=== PATIENT | female | born 1975 | race Caucasian/White ===

== ENCOUNTER 2022-04-07 17:05 | Emergency (ER) | payer OTHER, SELFPAY ==
--- NOTE | ~2022-04-07 | XR_ITS ---
EXAMINATION: XR chest 2V Exam Date/Time: 04/07/2022 17:20 CDT HISTORY: fatigue, fever, pt vapes Comparison: None available. RESULT: Lines, tubes, and devices: None. Lungs and pleura: Clear. Cardiomediastinal silhouette: Normal. Other: No acute osseous or upper abdominal finding. IMPRESSION: No acute cardiopulmonary process. Reviewed, dictated and finalized at location K.
[2022-04-07 17:13] VITALS: BP 139/87; PULSE 78; RESP 20; TEMP 37.3; O2SAT 100
--- NOTE | 2022-04-07 17:15 | ED.URI ---
HPI - URI/Sore Throat General Chief Complaint: Upper Respiratory Infection Stated Complaint: TIRED/FEVER/COUGH/CONGESTION/SORE THROAT Source: patient and RN notes reviewed Mode of arrival: ambulatory Limitations: no limitations History of Present Illness HPI Narrative: 46-year-old female presented for complaint of cough for 1 week, endorses sinus congestion, hoarse voice and fatigue. She states the cough becomes so severe she gags and vomits, worse at night and after talking. She has taken 3 negative COVID test since onset of symptoms. Her PCP prescribed Z-Severino which she completed 2 days ago. She denies sob, cp, wheezing, vomiting, diarrhea, fevers or chills. Denies sick contacts. She smokes half pack per day. MD elicited complaint: cough Related Data Home Medications Medication Instructions Recorded Confirmed bupropion HCl 300 mg 24 hr tablet, 300 mg PO QAM 03/04/22 03/31/22 extended release duloxetine 30 mg capsule,delayed 30 mg PO DAILY 03/04/22 03/31/22 release Allergies Allergy/AdvReac Type Severity Reaction Status Date / Time No Known Allergies Allergy Unknown Verified 03/04/22 11:16 Review of Systems Review of Systems: CONSTITUTIONAL: Endorses malaise, denies chills, sweats, fever EYES: Denies visual changes, redness, or discharge ENT: Reports rhinorrhea, congestion, denies sinus pain, otalgia, sore throat CARDIOVASCULAR: Denies chest pain, palpitations, edema RESPIRATORY: Reports cough, post nasal drainage. Denies dyspnea GASTROINTESTINAL: Denies abdominal pain, nausea, vomiting, diarrhea SKIN: Denies rash or itching MUSCULOSKELETAL: denies myalgia NEUROLOGIC: Denies headache [facility] Past Medical History Medical History Acute non-recurrent maxillary sinusitis BMI 28.0-28.9,adult Depression, reactive, psychotic Herpes labialis without complication Hypertension Major depression Screening for diabetes mellitus Family History Family History Mother , when patient was 5 yrs old Depression Grandparent Diabetes mellitus Hypertension Social History Social History Smoking status: Never smoker Tobacco type: e-cigarettes/vaping Second hand tobacco smoke exposure: No Alcohol intake: never Substance use: never Exam Narrative: GENERAL: Ill-appearing, nontoxic EYES: conjunctivae clear ENT: Mucous membranes moist. TM pearly schneider with dull light reflex bilaterally; no tragal tenderness. Oropharynx erythematous without lesions or exudate, no drooling, no trismus, uvula midline. CHEST: Clear to auscultation, breath sounds equal. No wheezing, rhonchi, rales, or stridor. No respiratory distress, speaks in full sentences. HEART: Regular rate and rhythm. No murmur heard. SKIN: Warm, dry, no rash. NEURO: Alert and oriented x3. PSYCH: tearful Course Course Emergency Course: Patient is aware of diagnosis, understands and agrees to treatment plan. Anticipatory guidance given. Patient agrees to follow-up as directed and is aware of reasons to seek care at the emergency department. Portions of this record may have been created with voice recognition software Level of Care: Express Care Visit Vital Signs Vital signs: Vital Signs Temperature 99.1 F 04/07/22 17:13 Pulse Rate 78 04/07/22 17:13 Respiratory Rate 20 04/07/22 17:13 Blood Pressure 139/87 04/07/22 17:13 Pulse Oximetry 100 04/07/22 17:13 Oxygen Delivery Room Air 04/07/22 17:13 Temperature 99.1 F 04/07/22 17:13 Pulse Rate 78 04/07/22 17:13 Respiratory Rate 20 04/07/22 17:13 Blood Pressure 139/87 04/07/22 17:13 Pulse Oximetry 100 04/07/22 17:13 Oxygen Delivery Room Air 04/07/22 17:13 reviewed MDM - URI/Sore Throat MDM Narrative Medical decision making narrative: CXR reviewed with pt. advised supp
== END 2022-04-07 17:46 | disposition home or self-care (01) ==
PROVIDERS: Emergency Provider Nurse Practitioner Family; PCP Nurse Practitioner Family
DX: J06.9 Acute upper respiratory infection, unspecified (principal); F17.290 Nicotine dependence, other tobacco product, uncomplicated; I10 Essential (primary) hypertension; F32.9 Major depressive disorder, single episode, unspecified
CPT/HCPCS: 71046; 99213; G0463

== ENCOUNTER → 2025-05-10 09:26 | Outpatient (CLI) | payer OTHER, SELFPAY ==
--- NOTE | ~2025-05-10 | XR_ITS ---
EXAMINATION: XR elbow RT 2V DATE: 05/10/2025 09:42 INDICATION: Pain in elbow TECHNIQUE: 1. Anteroposterior, two oblique and lateral views of the affected elbow were obtained. 2. Anteroposterior and lateral views of the affected forearm were obtained. COMPARISON: None. FINDINGS: Alignment is normal at the wrist and elbow. No fracture or elbow joint effusion. Joint spaces are normal. Soft tissues are unremarkable. Soft tissue swelling about the right elbow. IMPRESSION: 1. No fracture. No dislocation. If symptoms persist or worsen, consider a short-term follow-up study or additional imaging for further assessment. Reviewed, dictated and finalized at location Q. IMPRESSION: 1. No fracture. No dislocation. If symptoms persist or worsen, consider a short-term follow-up study or additio nal imaging for further assessment.
--- OUTSIDE RECORDS SUMMARY | 2025-05-10 09:30 | XMS_ITS | Clinical Summary ---
Author Organization [facility] Address [address] [place] [address] Care Team Providers Care Farm Machinery Set Up Mechanic Name Role Phone Telly Madsen MD Primary Care Provider [phone] Source Comments [facility],non-owned Affiliates and Associated Physician Practices is amultiple site organization consisting of ambulatory clinics and hospital sitesin [place], [place], [place] and [place]. This disclosure is being madepursuant to the Care Everywhere program and may not contain all information available regarding this patient. Last updated 18.[employer] [facility] Allergies No known active allergies Medications * Be aware that medications may not be up to date on this document. Alwaysverify current medications with the patient. buPROPion XL 24hr (WELLBUTRIN-XL) 150 MG tablet Take 300 mg by mouth once daily 10/30/2020 Active BLISOVI 24 FE 1-20 MG-MCG(24) tablet Take 1 tablet by mouth once daily 12/10/2020 Active QUEtiapine (SEROQUEL) 25 MG tablet Take 0.5 tablets by mouth once daily 11/28/2020 Active valACYclovir (VALTREX) 1 GM tablet Take 1 g by mouth every 12 hours as needed for Other 01/10/2020 Active Active Problems No known active problems Family History Medical History Relation Name Comments Cancer - Skin, Melanoma Neg Hx Cancer - Skin, Non Melanoma Neg Hx Social History Tobacco Use Types Packs/Day Years Used Date Smoking Tobacco: Former Cigarettes 0.3 2 1 994 - 1995 Smokeless Tobacco: Never Alcohol Use Standard Drinks/Week Comments Never 0 (1 standard drink = 0.6 oz pur e alcohol) Comments Unknown Sex and Gender Information Value Date Recorded Sex Assigned at Not on file Legal Sex Female 8:47 AM SCRAP SEPARATOR Gender Identity Not on file Sexual Orientation Not on file Plan of Treatment Health Maintenance Due Date Last Done Comments COLOGUARD (AGES 45-75) - COL ON CA SCREENING 1974 COLON MONITORING 1974 COLONOSCOPY - COLON CA SCREENING 1974 CT COLONOGRAPHY - COLON CA SCREENING 1974 Colorectal Cancer Screening 1974 FIT - COLON CA SCREENING 1974 FLEX SIG - COLON CA SCREENING 1974 LIPID TESTING 1974 HIV SCREENING 1989 HEPATITIS C SCREENING 04/05/1992 DTAP/TDAP/TD VACCINES (1 - Tdap) 1993 HEPATITIS B VACCINE (1 of 3 - 19+ 3-dose series) 1993 MAMMOGRAM 10/23/2022 10/23/2020 PNEUMOCOCCAL VACCINE 50+ (1 of 1 - PCV) 2024 ZOSTER VACCINE (1 of 2) 2024 COVID-19 VACCINE (1 - 2023-2 5 season) 2024 DEPRESSION SCREENING 09/12/2024 INFLUENZA VACCINE (#1) 2025 HIB VACCINE Aged Out No longer eligi ble based on patient's age to complete this topic HPV VACCINE Aged Out No longer eligi ble based on patient's age to complete this topic MENINGOCOCCAL (Group B) VACC INE SHARED DECISION-MAKING Aged Out No longer eligibl e based on patient's age to complete this topic MENINGOCOCCAL GROUPS A/C/Y/W VACCINE Aged Out No longer eligible b ased on patient's age to complete this topic Care Teams Farm Machinery Set Up Mechanic Relationship Specialty Start Date End Date Telly Madsen MD [address] [address] PCP - General 11/14/20
--- OUTSIDE RECORDS SUMMARY | 2025-05-10 09:30 | XMS_ITS | Clinical Summary ---
Author Organization [facility] Address [address] [place] [address] Care Team Providers Care Utility Aircrewman Name Role Phone DougAllie MARCO Primary Care Provider [phone] Angeline Etienne MD Unavailable [phone] Allergies No known active allergies Surgical History Surgery Date Site/Laterality Comments AUGMENTATION MAMMAPLASTY 09/12/2009 - 09/11/2010 Bilater al Social History Tobacco Use Types Packs/Day Years Used Date Smoking Tobacco: Never Assessed Comments No Sex and Gender Information Value Date Recorded Sex Assigned at Not on file Legal Sex Female 2:40 PM SUSTAINABILITY OFFICER Gender Identity Female 08/16/2023 8:56 PM SUSTAINABILITY OFFICER Sexual Orientation Straight 08/16/2023 8: 56 PM SUSTAINABILITY OFFICER Obstetrics History Para Term AB IAB SAB Ectopic Multiple Livin g Live Births 2 2 2 Date Outcome GA Total Labor Labor/2nd/3rd Weight Sex Type Anes PTL Radha A1 A5 Name Clin Term Term Last Filed Vital Signs Vital Sign Reading Time Taken Comments Blood Pressure - - Pulse - - Temperature - - Respiratory Rate - - Oxygen Saturation - - Inhaled Oxygen Concentration - - Weight 71.2 kg (157 lb) 12/05/2020 8:29 AM CDT Height 167.6 cm (5' 6) 12/05/2020 8:29 AM CDT Body Mass Index 25.34 12/05/2020 8:29 AM CDT Plan of Treatment Health Maintenance Due Date Last Done Comments Cervical Cancer Screening 1974 Colon Cancer Screening-Colonoscopy 1974 Depression Screening 1974 Hepatitis C Screening 1974 DTaP/Tdap/Td Vaccine (1 - Tdap) 1985 Hepatitis B Screening 1992 Regular Well Visit/Exam 18-64 1992 Zoster Vaccine (1 of 2) 2024 Covid-19 Vaccine (4 - season) 2024 09/18/2021, 10/28/2020, 09/30/2020 Influenza Vaccine (#1) 2025 06/19/2024, 2022 Breast Cancer Screening-Mammogram 09/15/2025 09/15/2024, 08/03/2023, 08/03/2022, Additional history exists Pneumococcal vaccine <65 Aged Out No longer eligible based on patient's age to complete this topic Procedures Procedure Name Priority Date/Time Associated Diagnosis Comments SCREENING MAMMOGRAM BILATERAL W HARLAN W IMPLANTS Schedule Routine, Read Routine (OP Routine) 09/15/2024 7:46 AM SUSTAINABILITY OFFICER Encounter for other screening for malignant neoplasm of breast from Last 3 Months or Most Recently Relevant to Health Maintenance Results * Screening Mammogram Bilateral W Harlan W Implants (09/15/2024 7:46 AM SUSTAINABILITY OFFICER) Anatomical Region Laterality Modality Breast Bilateral Mammography 09/16/2024 9:17 PM SUSTAINABILITY OFFICER Impressions 09/16/2024 9:17 PM SUSTAINABILITY OFFICER No evidence of malignancy in either breast. FINAL ASSESSMENT: BI-RADS Category 2: Benign. RECOMMENDATION: Recommend return for annual screening mammogram in 12 months. Electronically signed by: Wolf Iyer M.D. Narrative 09/16/2024 9:17 PM SUSTAINABILITY OFFICER EXAMINATION: BILATERAL SCREENING MAMMOGRAM COMPARISON: 08/17/2023, 08/03/2023, 08/03/2022, 12/05/2020, 10/23/2020 TECHNIQUE: Full-field 2D and digital breast tomosynthesis (DBT) images were obtained. CAD was utilized. BREAST PARENCHYMAL COMPOSITION: The breasts are heterogenously dense, which may obscure small masses. FINDINGS: There is redemonstration of bilateral subpectoral silicone breast implants, the presence of which limits the sensitivity of mammography. No suspicious masses, suspicious calcifications, or other suspicious findings are seen in either breast. There has been no suspicious interval change. Mich Olivo MD IMG MAMMO PROCEDURES F inal Result from Last 3 Months or Most Recently Relevant to Health Maintenance Insurance [facility]/PPO Address: [address] [address] [place] [address] [facility] [employer] [facility] [facility]PPO Address: [address] [address] [place] [address] [facility] Care Teams Utility Aircrewman Relationship Specialty Start Date End Date Allie Camacho NP PCP - General Family Medicine 06/25/22 Angeline Etienne MD Consulting Physician Plastic Surgery 08/17/23
== END ==
LOC: EXPTROY 09:28
PROVIDERS: PCP Nurse Practitioner Family; Visit Provider Nurse Practitioner Family
DX: M25.521 Pain in right elbow (principal)
CPT/HCPCS: 73070